=== PATIENT | male | born 1965 | race Hispanic/Latino ===

== ENCOUNTER → 2018-08-02 | Outpatient (CLI) | payer BC ==
[~2018-08-02] MED LIST: IOPAMIDOL 370 MG/ML 200 ML INFUS..BTL INJ ONE; SODIUM CHLORIDE 0.9% 50ML 50 ML ONE
--- NOTE | 2018-08-02 13:45 | Diagnostic Imaging Report ---
EXAMINATION: CT of the abdomen and pelvis with contrast. TECHNIQUE: Spiral CT images of the abdomen and pelvis were performed from the lung bases to the lesser trochanters after the intravenous administration of 100 cc Isovue-370 and the oral administration of water. Coronal and sagittal reformatted images were obtained. COMPARISON: None. CLINICAL HISTORY:History of prostate cancer, rising PSA DISCUSSION: ABDOMEN/PELVIS: LOWER THORAX:Unremarkable. HEPATOBILIARY: No focal hepatic lesions. No intra-or extrahepatic biliary ductal dilation. There are multiple calculi within the gallbladder, along with suspected calcifications of the gallbladder wall. No pericholecystic inflammation. SPLEEN: No splenomegaly. PANCREAS: No focal masses or ductal dilatation. ADRENALS: No adrenal nodules. KIDNEYS/URETERS: 3.1 cm AP x 2.2 cm transverse x 3 cm craniocaudal lobulated, heterogeneously enhancing solid, partially exophytic mass projecting from the interpolar right kidney as seen on series 2 image 33. 4 cm complex predominantly low-attenuation lesion with a thin internal septation and rim calcification has average internal attenuation 20-30 Hounsfield units. 1.9 cm parenchymal cyst in the lower pole of the left kidney. 1.6 cm exophytic simple cyst projecting from the lower pole of the left kidney. Additional subcentimeter hypoattenuating lesions in both kidneys, too small to further characterize though likely to represent additional small cysts. PELVIC ORGANS/BLADDER: The urinary bladder is normal. No prostatomegaly. Pelvic phleboliths. PERITONEUM/RETROPERITONEUM: No free air or fluid. LYMPH NODES: No pelvic sidewall, retroperitoneal, or mesenteric lymphadenopathy. VESSELS: Abdominal aorta, major branch vessels, and iliac arterial systems are well-visualized and patent. Mild atherosclerotic calcification of the celiac and SMA origins, without stenosis. Portal vein, splenic vein, and central superior mesenteric vein are patent. Bilateral renal veins are patent. GI TRACT: The large bowel shows no distention or wall thickening. Gas and fecal material is noted throughout. The appendix is normal. Postsurgical changes along the greater curvature of stomach. No small bowel dilatation to suggest obstruction. BONES AND SOFT TISSUE: No focal soft tissue abnormalities. Probable bone island right ischial tuberosity. No osseous destructive lesions. Degenerative disc changes and facet arthropathy of the lumbar spine. IMPRESSION: No specific findings of visceral or osseous metastatic disease in this patient with reported history of prostate cancer with rising PSA. 3.1 cm solid, enhancing mass arising from the right kidney is highly concerning for renal cell carcinoma. 4 cm hypoattenuating left renal lesion has greater than expected attenuation for a cyst, which may be attributable to proteinaceous contents. Given presence of internal septation and peripheral calcification, further characterization with MRI of the abdomen with and without contrast (renal mass protocol) is suggested. 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 Surgical consultation is suggested as porcelain gallbladder is associated with increased risk of gallbladder carcinoma. Findings were discussed by telephone with Dr. Dupree's medical dir Ms. Cabello at [phone] at 1:40 PM 08/02/2018. Signed by: Dr. Ashvin Lobo M.D. on 08/02/2018 1:42 PM
--- NOTE | 2018-08-02 16:32 | Diagnostic Imaging Report ---
Bone Scan, delayed phase INDICATION: C61 Malignant neoplasm of prostate. Diagnosis of prostate cancer in 2013. Recent elevated PSA of 13.4 ng/mL. COMPARISON: CT abdo/pelvis 08/02/2018 REPORT: Approximately 3 hours following intravenous administration of 27 mCi of Tc-99m MDP, delayed total body images in the anterior and posterior projections and selected spot images were obtained. Degenerative changes are noted in the lower thoracic spine and at L4/L5 on the left. Right knee prosthesis without abnormal associated tracer activity. Degenerative changes in the bilateral shoulders and left knee. Otherwise, distribution of tracer activity is unremarkable throughout the skeletal system. No abnormal accumulation of tracer is seen in the soft tissues or urinary tract. IMPRESSION: No scan evidence of metastatic bone disease. Signed by: Dr. La Arteaga M.D. on 08/02/2018 4:29 PM
== END ==
LOC: NM 11:34
PROVIDERS: ATTEND Urology
DX: R97.20 Elevated prostate specific antigen [PSA] (principal); Z85.46 Personal history of malignant neoplasm of prostate
CPT/HCPCS: 74177; 78306; A9503; Q9967

== ENCOUNTER → 2018-08-26 | Outpatient (CLI) | payer BC ==
[~2018-08-26] MED LIST changes: +FENTANYL CITRATE/PF 100MCG/2 ML INJ ONE; +GELATIN SPONGE 12-7MM ONE; -IOPAMIDOL 370 MG/ML 200 ML INFUS..BTL INJ ONE; +MIDAZOLAM HCL 2 MG/2 ML VIAL ONE; -SODIUM CHLORIDE 0.9% 50ML 50 ML ONE
[2018-08-26 08:51] LABS: INR 0.96; PROTHROMBIN TIME 13.3 seconds (11.9-14.5)
[2018-08-26 08:52] LABS: PARTIAL THROMBOPLASTIN TIME 30.5 seconds (23.8-35.5)
--- NOTE | 2018-08-26 12:27 | Diagnostic Imaging Report ---
Procedure: CT-guided FNA and core biopsy of a right upper pole renal lesion. Preoperative diagnosis: Suspicious appearing exophytic right upper pole renal mass. Postoperative diagnosis: Same Conscious sedation: Versed 2 mg intravenous, Fentanyl 100 mcg intravenous. The patient's vital signs, including pulse oximetry, were continuously monitored by the interventional radiology nurse. Sedation time was 60 minutes. Dose area product: 2,298.09 mGy-cm Contrast used: None Estimated blood loss: Minimal. Complications: No immediate. Procedure in detail: Informed consent for the procedure was obtained from the patient after discussion of risks and benefits. Right flank was prepped and draped in the usual fashion utilizing full barrier sterile technique. Local anesthesia with 1% lidocaine was administered into the skin and subcutaneous tissues of the right flank after appropriate CT localization. A 19-gauge guiding needle was then advanced into the exophytic right upper pole renal mass. Through the guiding needle 3 FNA biopsies were performed utilizing a 20-gauge Chiba needle. Eight core biopsies were also accomplished through the guiding needle with a 20-gauge core biopsy gun; 1 cm and 2 cm throws. Prior to removal of the guiding needle Gelfoam slurry was injected to aid in hemostasis. A sterile dressing was applied. The patient tolerated the procedure well without immediate complication. The specimens were evaluated by the Pathologist to confirm adequacy. Impression: Successful fine-needle aspiration and core biopsy of an exophytic right upper pole renal mass. Signed by: Dr. Demetrius Watson DO on 08/26/2018 12:24 PM
== END ==
LOC: CT 07:50
PROVIDERS: ATTEND Urology
DX: D41.00 Neoplasm of uncertain behavior of unspecified kidney (principal)
CPT/HCPCS: 10009; 36415; 50200; 85049; 85610; 85730; 88112; 88305; J2250; 99152; 99153

== ENCOUNTER → 2018-09-12 | Day surgery (SDC) | payer BC ==
[~2018-09-12] MED LIST changes: +ACETAMINOPHEN 1000 MG/100 ML IV ONE; +BUPIVACAINE 0.25% 30ML SDV INJ ONE; +CEFAZOLIN SOD 2 GM/D5W 50ML 50 ML IV ONE; +DEXAMETHASONE SOD PHOS INJ 4 MG/ML VIAL ONE; -GELATIN SPONGE 12-7MM ONE; +GLYCOPYRROLATE INJ 1MG/ 5 ML SYR ONE; +LIDOCAINE HCL 2% LOCAL INJ 5 ML SDV VIAL INJ ONE; +ONDANSETRON HCL INJ 2MG/ML 2ML 2 MG/ML VIAL ONE; +PROPOFOL IV EMULSION 10 MG/ML 20 ML VIAL ONE; +ROCURONIUM BROMIDE 10 MG/ML 5ML VIAL ONE; +SEVOFLURANE INHAL SOLN 250 ML PEN BTL ONE; +TYLENOL PO
--- OUTSIDE RECORDS SUMMARY | 2018-09-12 05:18 | XMS REPORT ---
Author Author [facility] Address Unknown Phone Unavailable Care Team Providers Care [facility] [facility] Quality Control Technician Name Role Phone RASHID KESSLER Unavailable Unavailable Problems This patient has no known problems. Allergies, Adverse Reactions, Alerts This patient has no known allergies or adverse reactions. Medications This patient has no known medications. Results Test Description Test Time Test Comments Text Results Atomic Results Result Comments MOD SEDATE ADD 15 MIN<5YRS 2018-08-26 12:12:00 [facility] [address] [place] [address] Patient Name: VERONIQUE VAUGHN MR #: [id number] : 1965 Age/Sex: 52/M Req #: [id number] [facility] Physician: Ordered by: MARGUERITE WATSON DO Report #: [id number] Location: CT Room/Bed: Procedure: [id number] CT/MOD SEDATE ADD 15 MIN<5YRS Exam Date: 08/26/18 Exam Time: 1006 REPORT STATUS: Signed Procedure: CT-guided FNA and core biopsy of a right upper pole renal lesion. Preoperative diagnosis: Suspicious appearing exophytic right upper pole renal mass. Postoperative diagnosis: Same Conscious sedation: Versed 2 mg intravenous, Fentanyl 100 mcg intravenous. The patient's vital signs, including pulse oximetry, were continuously monitored by the interventional radiology nurse. Sedation time was 60 minutes. Dose area product: 2,298.09 mGy-cm Contrast used: None Estimated blood loss: Minimal. Complications: No immediate. Procedure in detail: Informed consent for the procedure was obtained from the patient after discussion of risks and benefits. Right flank was prepped and draped in the usual fashion utilizing full barrier sterile technique. Local anesthesia with 1% lidocaine was administered into the skin and subcutaneous tissues of the right flank after appropriate CT localization. A 19-gauge guiding needle was then advanced into the exophytic right upper pole renal mass. Through the guiding needle 3 FNA biopsies were performed utilizing a 20-gauge Chiba needle. Eight core biopsies were also accomplished through the guiding needle with a 20- gauge core biopsy gun; 1 cm and 2 cm throws. Prior to removal of the guiding needle Gelfoam slurry was injected to aid in hemostasis. A sterile dressing was applied. The patient tolerated the procedure well without immediate compl ication. The specimens were evaluated by the Pathologist to confirm adequacy. Impression: Successful fine-needle aspiration and core biopsy of an exophytic right upper pole renal mass. Signed by: Dr. Marguerite Watson DO on 08/26/2018 12:24 PM Dictated By: MARGUERITE WATSON DO 1224 Transcribed By: SHERIF on 08/26/18 1224 COPY TO: MARGUERITE WATSON DO MOD SEDATE ADD 15 MIN<5YRS 2018-08-26 12:12:00 [place] [address] Patient Name: VERONIQUE VAUGHN MR #: [id number] : 1965 Age/Sex: 52/M Req #: [id number] Adm Physician: Ordered by: MARGUERITE WATSON DO Report #: [id number] Location: [place] Room/Bed: Procedure: [id number] CT/MOD SEDATE ADD 15 MIN<5YRS Exam Date: 08/26/18 Exam Time: 1006 REPORT STATUS: Signed Procedure: CT-guided FNA and core biopsy of a right upper pole renal lesion. Preoperative diagnosis: Suspicious appearing exophytic right upper pole renal mass. Postoperative diagnosis: Same Conscious sedation: Versed 2 mg intravenous, Fentanyl 100 mcg intravenous. The patient's vital signs, including pulse oximetry, were continuously monitored by the interventional radiology nurse. Sedation time was 60 minutes. Dose area product: 2,298.09 mGy-cm Contrast used: None Estimated blood loss: Minimal. Complications: No immediate. Procedure in detail: Informed consent for the procedure was obtained from the patient after discussion of risks and benefits. Right flank was prepped and draped in the usual fashion utilizing full barrier sterile technique. Local anesthesia with 1% lidocaine was administered into the skin and subcutaneous tissues of the right flank after appropriate CT localization. A 19-gauge guiding needle was then advanced into the exophytic right upper pole renal mass. Through the guiding needle 3 FNA biopsies were performed utilizing a 20-gauge Chiba needle. Eight core biopsies were also accomplished through the guiding needle with a 20- gauge core biopsy gun; 1 cm and 2 cm throws. Prior to removal of the guiding needle Gelfoam slurry was injected to aid in hemostasis. A sterile dressing was applied. The patient tolerated the procedure well without immediate compl ication. The specimens were evaluated by the Pathologist to confirm adequacy. Impression: Successful fine-needle aspiration and core biopsy of an exophytic right upper pole renal mass. Signed by: Dr. Marguerite Watson DO on 08/26/2018 12:24 PM Dictated By: MARGUERITE WATSON DO 1224 Transcribed By: SHERIF on 08/26/18 1224 COPY TO: MARGUERITE WATSON DO, MD SEDATE INITIAL > 5 YRS 2018-08-26 12:12:00 [place] [address] Patient Name: VERONIQUE VAUGHN MR #: [id number] : 1965 Age/Sex: 52/M Req #: [id number] [facility] Physician: Ordered by: MARGUERITE WATSON DO Report #: [id number] Location: CT Room/Bed: Procedure: [id number] CT/MD SEDATE INITIAL > 5 YRS Exam Date: 08/26/18 Exam Time: 949 REPORT STATUS: Signed Procedure: CT-guided FNA and core biopsy of a right upper pole renal lesion. Preoperative diagnosis: Suspicious appearing exophytic right upper pole renal mass. Postoperative diagnosis: Same Conscious sedation: Versed 2 mg intravenous, Fentanyl 100 mcg intravenous. The patient's vital signs, including pulse oximetry, were continuously monitored by the interventional radiology nurse. Sedation time was 60 minutes. Dose area product: 2,298.09 mGy-cm Contrast used: None Estimated blood loss: Minimal. Complications: No immediate. Procedure in detail: Informed consent for the procedure was obtained from the patient after discussion of risks and benefits. Right flank was prepped and draped in the usual fashion utilizing full barrier sterile technique. Local anesthesia with 1% lidocaine was administered into the skin and subcutaneous tissues of the right flank after appropriate CT localization. A 19-gauge guiding needle was then advanced into the exophytic right upper pole renal mass. Through the guiding needle 3 FNA biopsies were performed utilizing a 20-gauge Chiba needle. Eight core biopsies were also accomplished through the guiding needle with a 20- gauge core biopsy gun; 1 cm and 2 cm throws. Prior to removal of the guiding needle Gelfoam slurry was injected to aid in hemostasis. A sterile dressing was applied. The patient tolerated the procedure well without immediate compli cation. The specimens were evaluated by the Pathologist to confirm adequacy. Impression: Successful fine-needle aspiration and core biopsy of an exophytic right upper pole renal mass. Signed by: Dr. Marguerite Watson DO on 08/26/2018 12:24 PM Dictated By: MARGUERITE WATSON DO 1224 Transcribed By: SHERIF on 08/26/18 1224 COPY TO: MARGUERITE WATSON DO FNA CT GUIDED 1ST LESION 2018-08-26 12:12:00 [facility] [address] [place] [address] Patient Name: VERONIQUE VAUGHN MR #: [id number] : 1965 Age/Sex: 52/M Req #: [id number] [facility] Physician: Ordered by: RASHID KESSLER MD Report #: [id number] Location: CT Room/Bed: Procedure: [id number] IR/FNA CT GUIDED 1ST LESION Exam Date: 08/26/18 Exam Time: 1140 REPORT STATUS: Signed Procedure: CT-guided FNA and core biopsy of a right upp er pole renal lesion. Preoperative diagnosis: Suspicious appearing exophytic right upper pole renal mass. Postoperative diagnosis: Same Conscious sedation: Versed 2 mg intravenous, Fentanyl 100 mcg intravenous. The patient's vital signs, including pulse oximetry, were continuously monitored by the interventional radiology nurse. Sedation time was 60 minutes. Dose area product: 2,298.09 mGy-cm Contrast used: None Estimated blood loss: Minimal. Complications: No immediate. Procedure in detail: Informed consent for the procedure was obtained from the patient after discussion of risks and benefits. Right flank was prepped and draped in the usual fashion utilizing full barrier sterile technique. Local anesthesia with 1% lidocaine was administered into the skin and subcutaneous tissues of the right flank after appropriate CT localization. A 19-gauge guiding needle was then advanced into the exophytic right upper pole renal mass. Through the guiding needle 3 FNA biopsies were performed utilizing a 20-gauge Chiba needle. Eight core biopsies were also accomplished through the guiding needle with a 20- gauge core biopsy gun; 1 cm and 2 cm throws. Prior to removal of the guiding needle Gelfoam slurry was injected to aid in hemostasis. A sterile dressing was applied. The patient tolerated the procedure well without immediate complication. The specimens were evaluated by the Pathologist to confirm adequacy. Impression: Successful fine-needle aspiration and core biopsy of an exophytic right upper pole renal mass. Signed by: Dr. Marguerite Watson DO on 08/26/2018 12:24 PM Dictated By: MARGUERITE WATSON DO 1224 Transcribed By: SHERIF on 08/26/18 1224 COPY TO: RASHID KESSLER MD BIOPSY RENAL 2018-08-26 12:12:00 [place] [address] Patient Name: VERONIQUE VAUGHN MR #: [id number] : 1965 Age/Sex: 52/M Req #: [id number] Adm Physician: Ordered by: RASHID KESSLER MD Report #: [id number] Location: [place] Room/Bed: Procedure: [id number] IR/BIOPSY RENAL Exam Date: 08/26/18 Exam Time: 1140 REPORT STATUS: Signed Procedure: CT-guided FNA and core biopsy of a right upper pole renal lesion. Preoperative diagnosis: Suspicious appearing exophytic right upper pole renal mass. Postoperative diagnosis: Same Conscious sedation: Versed 2 mg intravenous, Fentanyl 100 mcg intravenous. The patient's vital signs, including pulse oximetry, were continuously monitored by the interventional radiology nurse. Sedation time was 60 minutes. Dose area product: 2,298.09 mGy-cm Contrast used: None Estimated blood loss: Minimal. Complications: No immediate. Procedure in detail: Informed consent for the procedure was obtained from the patient after discussion of risks and benefits. Right flank was prepped and draped in the usual fashion utilizing full barrier sterile technique. Local anesthesia with 1% lidocaine was administered into the skin and subcutaneous tissues of the right flank after appropriate CT localization. A 19-gauge guiding needle was then advanced into the exophytic right upper pole renal mass. Through the guiding needle 3 FNA biopsies were performed utilizing a 20-gauge Chiba needle. Eight core biopsies were also accomplished through the guiding needle with a 20- gauge core biopsy gun; 1 cm and 2 cm throws. Prior to removal of the guiding needle Gelfoam slurry was injected to aid in hemostasis. A sterile dressing was applied. The patient tolerated the procedure well without immediate complication. The specimens were evaluated by the Pathologist to confirm adequacy. Impression: Successful fine-needle aspiration and core biopsy of an exophytic right upper pole renal mass. Signed by: Dr. Marguerite Watson DO on 08/26/2018 12:24 PM Dictated By: MARGUERITE WATSON DO 1224 Transcribed By: SHERIF on 08/26/18 1224 COPY TO: RASHID KESSLER MD BONE and/or JOINT WHOLE BODY 2018-08-02 16:22:00 [place] [address] Patient Name: VERONIQUE VAUGHN MR #: [id number] : 1965 Age/Sex: 52/M Req #: [id number] Adm Physician: Ordered by: RASHID KESSLER MD Report #: [id number] Location: [place] Room/Bed: Procedure: [id number] NM/BONE and/or JOINT WHOLE BODY Exam Date: 08/02/18 Exam Time: 1200 REPORT STATUS: Signed Bone Scan, delayed phase INDICATION: C61 Kathy gnant neoplasm of prostate. Diagnosis of prostate cancer in 2013. Recent elevated PSA of 13.4 ng/mL. COMPARISON: CT abdo/pelvis 08/02/2018 REPORT: Approximately 3 hours following intravenous administration of 27 mCi of Tc-99m MDP, delayed total body images in the anterior and posterior projections and selected spot images were obtained. Degenerative changes are noted in the lower thoracic spine and at L4/L5 on the left. Right knee prosthesis without abnormal associated tracer activity. Degenerative changes in the bilateral shoulders and left knee. Otherwise, distribution of tracer activity is unremarkable throughout the skeletal system. No abnormal accumulation of tracer is seen in the soft tissues or urinary tract. IMPRESSION: No scan evidence of metastatic bone disease. Signed by: Dr. Pedro Arteaga M.D. on 08/02/2018 4:29 PM Dictated By: PEDRO ARTEAGA MD 1629 Transcribed By: GILLIAN RICHARDSON on 08/02/18 1624 COPY TO: RASHID KESLSER MD CT ABDOMEN/PELVIS W 2018-08-02 13:15:00 [place] [address] Patient Name: VERONIQUE VAUGHN MR #: [id number] : 1965 Age/Sex: 52/M Req #: [id number] Adm Physician: Ordered by: RASHID KESSLER MD Report #: [id number] Location: [place] Room/Bed: Procedure: [id number] CT/CT ABDOMEN/PELVIS W Exam Date: 08/02/18 Exam Time: 1230 REPORT STATUS: Signed EXAMINATION: CT of the abdomen and pelvis with contrast. TECHNIQUE: Spiral CT images of the abdomen and pelvis were performed from the lung bases to the lesser trochanters after the intravenous administration of 100 cc Isovue-370 and the oral administration of water. Coronal and sagittal reformatted images were obtained. COMPARISON: None. CLINICAL HISTORY:History of prostate cancer, rising PSA DISCUSSION: ABDOMEN/PELVIS: LOWER THORAX:Unremarkable. HEPATOBILIARY: No focal hepatic lesions. No intra-or extrahepatic biliary ductal dilation. There are multiple calculi within the gallbladder, along with suspected calcifications of the gallbladder wall. No pericholecystic inflammation. SPLEEN: No splenomegaly. PANCREAS: No focal masses or ductal dilatation. ADRENALS: No adrenal nodules. KIDNEYS/URETERS: 3.1 cm AP x 2.2 cm transverse x 3 cm craniocaudal lobulated, heterogeneously enhancing solid, partially exophytic mass projecting from the interpolar right kidney as seen on series 2 image 33. 4 cm complex predominantly low- attenuation lesion with a thin internal septation and rim calcification has average internal attenuation 20-30 Hounsfield units. 1.9 cm parenchymal cyst in the lower pole of the left kidney. 1.6 cm exophytic simple cyst projecting from the lower pole of the left kidney. Additional subcentimeter hypoattenuating lesions in both kidneys, too small to further characterize though likely to represent additional small cysts. PELVIC ORGANS/BLADDER: The urinary bladder is normal. No prostatomegaly. Pelvic phleboliths. PERITONEUM/RETROPERITONEUM: No free air or fluid. LYMPH NODES: No pelvic sidewall, retroperitoneal, or mesenteric lymphadenopathy. VESSELS: Abdominal aorta, major branch vessels, and iliac arterial systems are well- visualized and patent. Mild atherosclerotic calcification of the celiac and SMA origins, without stenosis. Portal vein, splenic vein, and central superior mesenteric vein are patent. Bilateral renal veins are patent. GI TRACT: The large bowel shows no distention or wall thickening. Gas and fecal material is noted throughout. The appendix is normal. Postsurgical changes along the greater curvature of stomach. No small bowel dilatation to suggest obstruction. BONES AND SOFT TISSUE: No focal soft tissue abnormalities. Probable bone island right ischial tuberosity. No osseous destructive lesions. Degenerative disc changes and facet arthropathy of the lumbar spine. IMPRESSION: No specific findings of visceral or osseous metastatic disease in this patient with reported history of prostate cancer with rising PSA. 3.1 cm solid, enhancing mass arising from the right kidney is highly concerning for renal cell carcinoma. 4 cm hypoattenuating left renal lesion has greater than expected attenuation for a cyst, which may be attributable to proteinaceous contents. Given presence of internal septation and peripheral calcification, further characterization with MRI of the abdomen with and without contrast (renal mass protocol) is suggested. 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 Surgical consultation is suggested as porc elain gallbladder is associated with increased risk of gallbladder carcinoma. Findings were discussed by telephone with Dr. Kessler's medical secretary Ms. Cabello at [phone] at 1:40 PM 08/02/2018. Signed by: Dr. Kathya Ruvalcaba M.D. on 08/02/2018 1:42 PM Dictated By: KATHYA RUVALCABA MD 1342 Transcribed By: SHERIF on 08/02/18 1342 COPY TO: RASHID KESSLER MD
[2018-09-12 10:00] VITALS: BP 146/79
--- NOTE | 2018-09-12 15:37 | Operative Report ---
DATE OF PROCEDURE: 09/12/2018 SURGEON: Yoel Paulson MD PREOPERATIVE DIAGNOSIS: Chronic cholecystitis. POSTOPERATIVE DIAGNOSIS: Chronic cholecystitis. PREOPERATIVE INDICATIONS: Treat disease, prevent complications related to biliary disease, especially acute cholecystitis, pancreatitis. PROCEDURE: Laparoscopic cholecystectomy. ANESTHESIA: General. FRUIT DRYER: Ty Sorensen, certified surgical technologist (needed due to complexity of case). FLUIDS: 900 mL of crystalloid. ESTIMATED BLOOD LOSS: 10 mL. DRAINS: None. COMPLICATIONS: None. SPECIMENS: Gallbladder. GRAFTS: None. FINDINGS: 1. Extremely thickened gallbladder wall. 2. Large gallstone in the infundibulum. 3. Enlarged cystic duct, requiring Endo-GI stapling. PROCEDURE IN DETAIL: The patient was brought to the operating room and was intubated under general endotracheal anesthesia. He was sterilely prepped and draped in the usual fashion. A preprocedure pause was performed identifying the patient, use of perioperative antibiotics, intended procedure, and staff surgeon. Access was gained to the peritoneal cavity via 5 mm left subcostal incision using a Veress needle. Insufflation ensued. Three additional trocars were placed in standard position. The gallbladder was then grasped at the fundus and retracted cephalad to the right of the liver. There were omental adhesions to the wall of the gallbladder, which were carefully lysed. Gallbladder was extremely thickened and there was a large stone in the infundibulum of the gallbladder, which made retracting the gallbladder difficult; however, I was able to circumferentially dissect out the cystic duct and obtained a critical view of dissection. The cystic artery was also dissected. The cystic duct was quite short and large. Given its large diameter, I elected to staple this with a white load Ethicon Endo CLAY stapler. Once it was stapled off, I then excised the gallbladder off the gallbladder fossa. The cystic duct was clipped once on the proximal side and once on the distal side and divided with scissors. The gallbladder was then removed through the periumbilical port side with an Endo Catch bag. I did have to enlarge the fasciotomy as well as skin incision site in order to remove the gallbladder, which was difficult to remove due to a very large stone. I then closed the large port side with 0-Vicryl suture using Moy-Jossue technique. The left subcostal incision had to be enlarged for the stapling device to be introduced that was also closed with 0-Vicryl suture using Moy-Jossue technique. We then closed the incisions sites with 4-0 Monocryl suture in subcuticular fashion. Dermabond dressings were applied, 0.25% Bupivacaine was used both at the preperitoneal and incisional sites. The patient tolerated the procedure well. Type of wound is type 2, clean and contaminant. Yoel Paulson MD Jenelle/MODL /[id number]
== END | disposition home or self-care (01) ==
LOC: OR 05:15
PROVIDERS: ATTEND Surgery
DX: K80.10 Calculus of gallbladder with chronic cholecystitis without obstruction (principal); C61 Malignant neoplasm of prostate; F17.210 Nicotine dependence, cigarettes, uncomplicated; Z01.810 Encounter for preprocedural cardiovascular examination; Z98.84 Bariatric surgery status
CPT/HCPCS: 47562; 88304; 93005; J0131; J0690; J1100; J2001; J2250; J2405; J2704; J3490

== ENCOUNTER → 2019-11-09 | Outpatient (CLI) | payer BC ==
[~2019-11-09] MED LIST changes: -ACETAMINOPHEN 1000 MG/100 ML IV ONE; -BUPIVACAINE 0.25% 30ML SDV INJ ONE; -CEFAZOLIN SOD 2 GM/D5W 50ML 50 ML IV ONE; -DEXAMETHASONE SOD PHOS INJ 4 MG/ML VIAL ONE; -FENTANYL CITRATE/PF 100MCG/2 ML INJ ONE; -GLYCOPYRROLATE INJ 1MG/ 5 ML SYR ONE; +IOPAMIDOL 370 MG/ML 200 ML INFUS..BTL INJ ONE; -LIDOCAINE HCL 2% LOCAL INJ 5 ML SDV VIAL INJ ONE; -MIDAZOLAM HCL 2 MG/2 ML VIAL ONE; -ONDANSETRON HCL INJ 2MG/ML 2ML 2 MG/ML VIAL ONE; -PROPOFOL IV EMULSION 10 MG/ML 20 ML VIAL ONE; -ROCURONIUM BROMIDE 10 MG/ML 5ML VIAL ONE; -SEVOFLURANE INHAL SOLN 250 ML PEN BTL ONE; +SODIUM CHLORIDE 0.9% 50ML 50 ML ONE
--- NOTE | 2019-11-09 20:03 | Diagnostic Imaging Report ---
EXAM: CT Abdomen WITH contrast INDICATION: Follow-up of renal mass found one year ago. COMPARISON: Multiple prior CTs dating back to 08/02/2018 TECHNIQUE: Abdomen was scanned utilizing a multidetector helical scanner from the lung base to the iliac crest after administration of IV contrast. Coronal and sagittal reformations were obtained. Routine protocol was performed. Scan was performed when during portal venous phase. IV CONTRAST: 150 mL of Omnipaque 300 ORAL CONTRAST: Water COMPLICATIONS: None RADIATION DOSE: Total DLP: 1817.46 mGy*cm CTDIvol has been reviewed. It is below the limits set by the Radiation Protocol Committee (RPC). Dose modulation, iterative reconstruction, and/or weight based adjustment of the mA/kV was utilized to reduce the radiation dose to as low as reasonably achievable. FINDINGS: LINES and TUBES: None. LOWER THORAX: The lower lungs are clear. The partially imaged the heart is normal. HEPATOBILIARY: No focal hepatic lesions. No biliary ductal dilation. GALLBLADDER: Patient is status post cholecystectomy. No extrahepatic biliary ductal dilatation. SPLEEN: No splenomegaly. PANCREAS: No focal masses or ductal dilatation. ADRENALS: There is diffuse thickening of the bilateral adrenal glands which is unchanged from prior examination. KIDNEYS/URETERS: There has been interval excision of the previously noted exophytic right lower lid and renal mass. There are hypodense sutures along the surgical bed of the excised mass. No abnormal enhancements to suggest the presence of recurrence. No interval changes in the cysts within the left kidney.No hydronephrosis. No stones. GI TRACT: There are post surgical changes of prior gastric bypass surgery. No abnormal distention, wall thickening, or evidence of bowel obstruction. LYMPH NODES: There are enlarged para-aortic lymph nodes (series 4 image [id number]) not seen on prior examination. VESSELS: The abdominal aorta and its major abdominal branches are patent and have normal caliber with mild atherosclerotic calcification. PERITONEUM / RETROPERITONEUM: No free air or fluid. BONES: There is multilevel degenerative disease of the spine with no suspicious osteoblastic or osteoblastic lesions. SOFT TISSUES: Unremarkable. IMPRESSION: 1. Interval excision of right renal mass with expected post surgical changes. No abnormal enhancement within the right kidney to suggest presence of recurrence. 2. Enlarged paraaortic lymph nodes not seen on prior examination. These may represent reactive lymph nodes. However, metastatic disease to the lymph nodes cannot be completely excluded. Complete metastatic workup can be considered with PET/CT if clinically indicated. Attention of follow-up evaluation. 3. No interval changes in left renal cysts. 4. Status post cholecystectomy. These images were reviewed by Paul Irene MD Signed by: Paul Irene MD on 11/09/2019 8:00 PM
== END ==
LOC: CT 16:52
PROVIDERS: ATTEND Urology
DX: C64.9 Malignant neoplasm of unspecified kidney, except renal pelvis (principal)
CPT/HCPCS: 74170; Q9967